=== PATIENT | male | born 1985 | race African-American/Black ===

== ENCOUNTER 2021-01-16 08:59 | Emergency (ER) | payer OTHER ==
[~2021-01-16] VITALS: Ht 170.2 cm; Wt 118.2 kg
[2021-01-16 09:00] VITALS: BP 142/71
[2021-01-16] MEDS ORDERED: PROAAER10 INH (11:12)
--- NOTE | 2021-01-16 11:35 | REP ---
INDICATION: cough. COMPARISON: None TECHNIQUE: The technique utilized in obtaining the radiograph has magnified the cardiac silhouette and attenuated the interstitial markings. FINDINGS: The superior mediastinal structures are midline. The heart is not enlarged. The diaphragmatic surfaces of the lungs are regular and the costophrenic angles are clear. The pulmonary [place]ita are clear. The visualized osseous structures are intact. IMPRESSION: There is no acute cardiopulmonary disease. <Electronically signed by Sky Louis > 01/16/21 [id number]
--- NOTE | 2021-01-17 10:08 | ECGEPIP ---
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
== END 2021-01-16 13:26 | disposition home or self-care (01) ==
LOC: EDSEX 08:59 → M ED 08:59
DX: J06.9 Acute upper respiratory infection, unspecified (principal)
CPT/HCPCS: 71045; 84484; 93005; 99284; U0003